=== PATIENT | female | born 1960 ===

== ENCOUNTER 2020-11-10 19:03 | Emergency (ER) | payer SELFPAY ==
[2020-11-10] MEDS ORDERED: Tetracaine HCl/PF 0.5% 4 ML Bottle EYELF ONE (19:23)
[2020-11-10] MEDS ORDERED: Distilled Water Ophth Irrig Soln 120 ML Bottle EYELF ONE (19:29)
[2020-11-10] MEDS ORDERED: Dexamethasone/Tobramycin 0.1-0.3% Ophth Susp 2.5 ML Bottle EYELF STA (19:37)
--- NOTE | 2020-11-10 19:43 | EDM.PDOC ---
ED HPI GENERAL MEDICAL PROBLEM - General Chief Complaint: General Stated Complaint: ?FB L Eye Time Seen by Provider: 11/10/20 19:11 Source of Information: Reports: Patient History Limitations: Reports: No Limitations - History of Present Illness INITIAL COMMENTS - FREE TEXT/NARRATIVE: This patient is a 59 year old female that presents to the ER. Patient reports that yesterday she was welding metal and got a piece in her left eye. Patient reports she was wearing glasses. Patient reports burning sensation to the left eye. No loss of vision. Denies headache, n, v, f, vision changes. Onset Date: 11/09/20 Duration: Day(s): (1) Quality: Reports: Burning Severity: Mild Improves with: Reports: None Worsens with: Reports: None Associated Symptoms: Denies: Confusion, Chest Pain, Cough, cough w sputum, D iaphoresis, Fever/Chills, Headaches, Loss of Appetite, Malaise, Nausea/Vomiting, Rash, Seizure, Shortness of Breath, Syncope, Weakness Left Eye Pain Score (Numeric/FACES): 2 - Related Data Allergies Allergy/AdvReac Type Severity Reaction Status Date / Time codeine Allergy Other Verified 11/10/20 19:13 Home Meds: Home Meds Acetaminophen [Tylenol] 650 mg PO ASDIRECTED PRN 11/10/20 [History] Cholecalciferol (Vitamin D3) [Vitamin D3] 2,000 unit PO BEDTIME 11/10/20 [History] Losartan Potassium 100 mg PO BEDTIME 11/10/20 [History] Magnesium 1 tab PO BEDTIME 11/10/20 [History] hydroCHLOROthiazide [Hydrochlorothiazide] 25 mg PO BEDTIME 11/10/20 [History] Past Medical History Cardiovascular History: Reports: Hypertension - Past Surgical History Female Surgical History: Reports: Section, Other (See Below) Other Female Surgeries/Procedures: one ovary removed Musculoskeletal Surgical History: Reports: Knee Replacement Social & Family History - Tobacco Use Tobacco Use Status *Q: Never Tobacco User - Caffeine Use Caffeine Use: Reports: Coffee - Recreational Drug Use Recreational Drug Use: No ED ROS GENERAL - Review of Systems Review Of Systems: See Below Constitutional: Reports: No Symptoms HEENT: Reports: Eye Pain (burning left, with FB sensation) Respiratory: Reports: No Symptoms Cardiovascular: Reports: No Symptoms Endocrine: Reports: No Symptoms GI/Abdominal: Reports: No Symptoms : Reports: No Symptoms Musculoskeletal: Reports: No Symptoms Skin: Reports: No Symptoms Neurological: Reports: No Symptoms Psychiatric: Reports: No Symptoms Hematologic/Lymphatic: Reports: No Symptoms Immunologic: Reports: No Symptoms ED EXAM, GENERAL - Physical Exam Exam: See Below Exam Limited By: No Limitations General Appearance: Alert, WD/WN, No Apparent Distress Eye Exam: Left Eye: Corneal Abrasion, Foreign Body (metal at 9 o clock), Other (swelling), Bilateral Eye: EOMI, PERRL Ears: Normal External Exam, Normal Canal, Hearing Grossly Normal, Normal TMs Ear Exam: Bilateral Ear: Auricle Normal, Canal Normal, TM normal Nose: Normal Inspection, Normal Mucosa, No Blood Throat/Mouth: Normal Inspection, Normal Lips, Normal Teeth, Normal Gums, Normal Oropharynx, Normal Voice, No Airway Compromise Head: Atraumatic, Normocephalic Neck: Normal Inspection Respiratory/Chest: No Respiratory Distress, Lungs Clear, Normal Breath Sounds Cardiovascular: Normal Peripheral Pulses, Regular Rate, Rhythm Neurological: Alert, Oriented Psychiatric: Normal Affect, Normal Mood Skin Exam: Warm, Dry ED GENERAL MEDICAL PROCEDURES - Additional/Other Procedure(s) Other (Free Text) Procedure(s): Alcaine 2 gtts applied to the left eye. Fluorescein put in left eye. Black light opth scope used to view. Metal seen at 9 o clock. There is also corneal abrasion at the site and surrounding the site. I then attempted to remove using flushing with NS, not successful. Then, attempted q-tip swabbing without success. I then attempted slick briefly, but unsuccessful as well. RN will flush the eye and apply medication drop. Discussed with patient importance to see patient centered care specialist right away Wednesday, as Wednesday is Holiday. Course - Vital Signs Last Recorded V/S: Last Vital Signs Temp 97.2 F 11/10/20 19:11 Pulse 84 11/10/20 19:11 Resp 16 11/10/20 19:11 BP 159/86 H 11/10/20 19:11 Pulse Ox 97 11/10/20 19:11 - Orders/Labs/Meds Orders: Active Orders 24 hr Category Date Time Status Visual Acuity [Vision Test] [RC] ASDIRECTED Care 11/10/20 19:43 Ordered Meds: Medications Discontinued Medications Generic Name Dose Route Start Last Admin Trade Name Freq PRN Reason Stop Dose Admin Tetracaine HCl 2 ml 11/10/20 19:23 11/10/20 19:29 Tetracaine Hcl/Pf 0.5% 4 Ml Bottle EYELF 11/10/20 19:24 2 ml ASDIRECTED ONE Administration Tobramycin/Dexamethasone 1 ml 11/10/20 19:37 11/10/20 19:42 Dexamethasone/Tobramycin 0.1-0.3% Ophth Susp 2.5 Ml Bottle EYELF 11/10/20 19:38 2 drop STAT STA Administration Water 5 ml 11/10/20 19:29 11/10/20 19:29 Distilled Water Ophth Irrig Soln 120 Ml Bottle EYELF 11/10/20 19:30 5 ml ONETIME ONE Administration Departure - Departure Time of Disposition: 19:41 Disposition: Home, Self-Care 01 Condition: Fair Clinical Impression: Eye foreign body Qualifiers: Encounter type: initial encounter Laterality: left Qualified Code(s): T15.92XA - Foreign body on external eye, part unspecified, left eye, initial encounter Corneal abrasion Qualifiers: Encounter type: initial encounter Laterality: left Qualified Code(s): S05.02XA - Injury of conjunctiva and corneal abrasion without foreign body, left eye, initial encounter - Discharge Information *PRESCRIPTION DRUG MONITORING PROGRAM REVIEWED*: Not Applicable *COPY OF PRESCRIPTION DRUG MONITORING REPORT IN PATIENT HECTOR: Not Applicable Instructions: Eye Foreign Body, [id number], Corneal Abrasion, [id number] Referrals: Blessing Hoover PA-C [Primary Care Provider] - Forms: ED Department Discharge Additional Instructions: Call early Wednesday morning patient centered care specialist to be seen that day: Retained metal in eye with corneal abrasion Return to the ER for loss of vision, fever, vomiting, or other concerns Tylenol for pain Tobramycin/Dexamethasone opth 0.3%/0.1% 2 drops every 6 hours while awake #1 bottle take home Sepsis Event Note (ED) - Evaluation Sepsis Screening Result: No Definite Risk - Focused Exam Vital Signs: Vital Signs Temp Pulse Resp BP Pulse Ox 11/10/20 19:11 97.2 F 84 16 159/86 H 97 - My Orders Last 24 Hours: My Active Orders 11/10/20 19:43 Visual Acuity [Vision Test] [RC] ASDIRECTED - Assessment/Plan Last 24 Hours: My Active Orders 11/10/20 19:43 Visual Acuity [Vision Test] [RC] ASDIRECTED Plan: PLEASE SEE RN NOTE FOR PFSH
== END 2020-11-10 19:55 | disposition home or self-care (01) ==
LOC: SUPCPDRO 19:03 → CC.ED 19:03
DX: S05.02XA Injury of conjunctiva and corneal abrasion without foreign body, left eye, initial encounter (principal); I10 Essential (primary) hypertension; Z88.5 Allergy status to narcotic agent; Z79.899 Other long term (current) drug therapy; W22.8XXA Striking against or struck by other objects, initial encounter
CPT/HCPCS: 99283